=== PATIENT | male | born 1965 | race Caucasian/White ===

== ENCOUNTER 2022-03-28 14:18 | Inpatient (IN) | payer OTHER ==
[2022-03-28 16:25] VITALS: BMI 20.7
[2022-03-28] MEDS ORDERED: cloNIDine HCL 0.1 MG TABLET PO PRN (16:37)
[2022-03-28] MEDS ORDERED: LOPERAMIDE HCL 2 MG CAPSULE PO PRN (16:37)
[2022-03-28] MEDS ORDERED: BISMUTH SUBSALICYLATE 524 MG/30 ML PO PRN (16:37)
[2022-03-28] MEDS ORDERED: MAGNESIUM CITRATE 300 ML BOTTLE PO PRN (16:37)
[2022-03-28] MEDS ORDERED: NALOXONE HCL (KLOXXADO) 8 MG SPRAY NS PRN (16:37)
[2022-03-28] MEDS ORDERED: ACETAMINOPHEN 325 MG TABLET (FP) PO PRN ×2 (16:37)
[2022-03-28] MEDS ORDERED: methaDONE HCL 10 MG TABLET (FOR DETOX USE ONLY) PO ONE (16:37)
[2022-03-28] MEDS ORDERED: NICOTINE 10 MG CARTRIDGE (INHALER) IH PRN (16:37)
[2022-03-28] MEDS ORDERED: BENZOCAINE/MENTHOL (CHLORASEPTIC ) LOZENGE MM PRN (16:37)
[2022-03-28] MEDS ORDERED: METHOCARBAMOL 500 MG TABLET PO PRN (16:37)
[2022-03-28] MEDS ORDERED: DICYCLOMINE HCL 10 MG CAPSULE PO PRN (16:37)
[2022-03-28] MEDS ORDERED: MAGNESIUM HYDROX 2400MG/30ML ORAL SUSPENSION 30 ML CUP PO PRN (16:37)
[2022-03-28] MEDS ORDERED: IBUPROFEN 400 MG TABLET (FP) PO PRN (16:37)
[2022-03-28] MEDS: THIAMINE HCL 100 MG TABLET (FP) PO SCH (22:10)
[2022-03-28] MEDS: GABAPENTIN 300 MG CAPSULE PO SCH (22:10)
[2022-03-28] MEDS: MELATONIN 5 MG TABLETS PO SCH (22:10)
[2022-03-28] MEDS: METHYL SALICYLATE/MENTHOL OINT 30 GM TUBE TP SCH (22:11)
[2022-03-29] MEDS: GABAPENTIN 300 MG CAPSULE PO SCH ×3 (06:33→21:04)
[2022-03-29] MEDS ORDERED: methaDONE HCL 10 MG TABLET PO ONE (09:33)
[2022-03-29] MEDS ORDERED: methaDONE HCL 10 MG TABLET ONE (10:03)
[2022-03-29] MEDS ORDERED: methaDONE HCL 40 MG DISPERSABLE TABLET ONE (10:03)
[2022-03-29] MEDS: NICOTINE 7 MG/24 HOURS TOPICAL PATCH TD SCH (10:11)
[2022-03-29] MEDS: METHYL SALICYLATE/MENTHOL OINT 30 GM TUBE TP SCH ×2 (10:11→21:04)
[2022-03-29] MEDS: PRENATAL VITAMINS W/ FOLIC ACID TABLET (FP) PO SCH (10:11)
[2022-03-29 11:48] LABS: HEMATOCRIT 38.4 % (35.4-49); HEMOGLOBIN 12.7 GM/dL (11.7-16.9); MCH 30.1 pg (25.7-33.7); MCHC 33.1 g/dl (32.0-35.9); MEAN CELL VOLUME 91.1 fl (80-96); PLATELET COUNT 213 10^3/uL (134-434); RBC 4.21 M/mm3 (4.00-5.60); RDW 13.8 % (11.9-15.9); WHITE BLOOD COUNT 5.3 K/mm3 (4.0-10.0)
[2022-03-29 11:54] LABS: ALBUMIN 3.9 g/dl (3.4-5.0); BLOOD UREA NITROGEN 18.1 mg/dL (7-18); CALCIUM 9.9 mg/dL (8.5-10.1)
[2022-03-29 11:58] LABS: CREATININE 0.8 mg/dL (0.55-1.3)
[2022-03-29 11:59] LABS: BILIRUBIN,TOTAL 0.3 mg/dL (0.2-1)
[2022-03-29 12:00] LABS: TOT PROT 8.6 g/dl (6.4-8.2)
[2022-03-29] MEDS ORDERED: PNEUMOC 20-VAL CONJ-DIP CRM/PF 0.5 ML SYRINGE IM ONE (12:00)
[2022-03-29] MEDS: THIAMINE HCL 100 MG TABLET (FP) PO SCH (21:03)
[2022-03-29] MEDS: MELATONIN 5 MG TABLETS PO SCH (21:03)
[2022-03-30] MEDS ORDERED: methaDONE HCL 10 MG TABLET PO SCH (06:00)
[2022-03-30] MEDS ORDERED: methaDONE HCL 10 MG TABLET ONE (06:17)
[2022-03-30] MEDS ORDERED: methaDONE HCL 40 MG DISPERSABLE TABLET ONE (06:17)
[2022-03-30] MEDS: GABAPENTIN 300 MG CAPSULE PO SCH ×3 (06:19→21:13)
[2022-03-30] MEDS: PRENATAL VITAMINS W/ FOLIC ACID TABLET (FP) PO SCH (09:47)
[2022-03-30] MEDS: METHYL SALICYLATE/MENTHOL OINT 30 GM TUBE TP SCH ×2 (09:48→21:13)
[2022-03-30] MEDS: NICOTINE 7 MG/24 HOURS TOPICAL PATCH TD SCH (09:49)
[2022-03-30] MEDS ORDERED: methaDONE HCL 10 MG TABLET (FOR DETOX USE ONLY) PO ONE (10:00)
[2022-03-30] MEDS: THIAMINE HCL 100 MG TABLET (FP) PO SCH (21:12)
[2022-03-30] MEDS: MELATONIN 5 MG TABLETS PO SCH (21:12)
[2022-03-31] MEDS ORDERED: methaDONE HCL 10 MG TABLET ONE (04:06)
[2022-03-31] MEDS ORDERED: methaDONE HCL 40 MG DISPERSABLE TABLET ONE (04:06)
[2022-03-31] MEDS: GABAPENTIN 300 MG CAPSULE PO SCH ×3 (06:31→21:15)
[2022-03-31] MEDS: PRENATAL VITAMINS W/ FOLIC ACID TABLET (FP) PO SCH (09:51)
[2022-03-31] MEDS: NICOTINE 7 MG/24 HOURS TOPICAL PATCH TD SCH (09:51)
[2022-03-31] MEDS: METHYL SALICYLATE/MENTHOL OINT 30 GM TUBE TP SCH ×2 (09:51→22:09)
[2022-03-31] MEDS: IBUPROFEN 600 MG TABLET (FP) PO PRN (11:58)
[2022-03-31] MEDS: MELATONIN 5 MG TABLETS PO SCH (21:15)
[2022-03-31] MEDS: THIAMINE HCL 100 MG TABLET (FP) PO SCH (21:15)
[2022-04-01] MEDS ORDERED: methaDONE HCL 10 MG TABLET ONE (03:09)
[2022-04-01] MEDS ORDERED: methaDONE HCL 40 MG DISPERSABLE TABLET ONE (03:09)
[2022-04-01] MEDS: GABAPENTIN 300 MG CAPSULE PO SCH ×3 (05:56→22:28)
[2022-04-01] MEDS: PRENATAL VITAMINS W/ FOLIC ACID TABLET (FP) PO SCH (09:36)
[2022-04-01] MEDS: METHYL SALICYLATE/MENTHOL OINT 30 GM TUBE TP SCH ×2 (09:37→22:29)
[2022-04-01] MEDS: NICOTINE 7 MG/24 HOURS TOPICAL PATCH TD SCH (09:37)
[2022-04-01] MEDS ORDERED: methaDONE HCL 10 MG TABLET (FOR DETOX USE ONLY) PO ONE (10:00)
[2022-04-01] MEDS: IBUPROFEN 600 MG TABLET (FP) PO PRN (13:38)
[2022-04-01] MEDS: THIAMINE HCL 100 MG TABLET (FP) PO SCH (22:28)
[2022-04-01] MEDS: MELATONIN 5 MG TABLETS PO SCH (22:28)
[2022-04-02] MEDS ORDERED: methaDONE HCL 10 MG TABLET ONE (03:44)
[2022-04-02] MEDS ORDERED: methaDONE HCL 40 MG DISPERSABLE TABLET ONE (03:44)
[2022-04-02] MEDS: GABAPENTIN 300 MG CAPSULE PO SCH ×3 (06:07→21:10)
[2022-04-02] MEDS: METHYL SALICYLATE/MENTHOL OINT 30 GM TUBE TP SCH ×2 (09:51→21:55)
[2022-04-02] MEDS: PRENATAL VITAMINS W/ FOLIC ACID TABLET (FP) PO SCH (09:52)
[2022-04-02] MEDS: IBUPROFEN 600 MG TABLET (FP) PO PRN ×2 (09:53→16:48)
[2022-04-02] MEDS: NICOTINE 7 MG/24 HOURS TOPICAL PATCH TD SCH (09:57)
[2022-04-02] MEDS: THIAMINE HCL 100 MG TABLET (FP) PO SCH (21:10)
[2022-04-02] MEDS: MELATONIN 5 MG TABLETS PO SCH (21:10)
[2022-04-03] MEDS ORDERED: methaDONE HCL 10 MG TABLET ONE (03:24)
[2022-04-03] MEDS ORDERED: methaDONE HCL 40 MG DISPERSABLE TABLET ONE (03:24)
[2022-04-03] MEDS: GABAPENTIN 300 MG CAPSULE PO SCH ×3 (06:17→21:12)
[2022-04-03] MEDS: IBUPROFEN 600 MG TABLET (FP) PO PRN ×3 (06:18→21:12)
[2022-04-03] MEDS: PRENATAL VITAMINS W/ FOLIC ACID TABLET (FP) PO SCH (09:46)
[2022-04-03] MEDS: NICOTINE 7 MG/24 HOURS TOPICAL PATCH TD SCH (09:46)
[2022-04-03] MEDS: METHYL SALICYLATE/MENTHOL OINT 30 GM TUBE TP SCH ×2 (09:47→21:55)
[2022-04-03] MEDS: THIAMINE HCL 100 MG TABLET (FP) PO SCH (21:12)
[2022-04-03] MEDS: MELATONIN 5 MG TABLETS PO SCH (21:12)
[2022-04-04] MEDS ORDERED: methaDONE HCL 10 MG TABLET ONE (03:08)
[2022-04-04] MEDS ORDERED: methaDONE HCL 40 MG DISPERSABLE TABLET ONE (03:09)
[2022-04-04] MEDS: GABAPENTIN 300 MG CAPSULE PO SCH ×3 (06:10→21:14)
[2022-04-04] MEDS: PRENATAL VITAMINS W/ FOLIC ACID TABLET (FP) PO SCH (09:41)
[2022-04-04] MEDS: METHYL SALICYLATE/MENTHOL OINT 30 GM TUBE TP SCH ×2 (09:41→21:14)
[2022-04-04] MEDS: NICOTINE 7 MG/24 HOURS TOPICAL PATCH TD SCH (09:41)
[2022-04-04] MEDS: THIAMINE HCL 100 MG TABLET (FP) PO SCH (21:14)
[2022-04-04] MEDS: MELATONIN 5 MG TABLETS PO SCH (21:14)
[2022-04-05] MEDS ORDERED: methaDONE HCL 10 MG TABLET ONE (03:10)
[2022-04-05] MEDS ORDERED: methaDONE HCL 40 MG DISPERSABLE TABLET ONE (03:10)
[2022-04-05] MEDS: GABAPENTIN 300 MG CAPSULE PO SCH ×3 (06:01→21:26)
[2022-04-05] MEDS: METHYL SALICYLATE/MENTHOL OINT 30 GM TUBE TP SCH ×2 (09:42→21:26)
[2022-04-05] MEDS: PRENATAL VITAMINS W/ FOLIC ACID TABLET (FP) PO SCH (09:42)
[2022-04-05] MEDS: NICOTINE 7 MG/24 HOURS TOPICAL PATCH TD SCH (09:42)
[2022-04-05] MEDS: THIAMINE HCL 100 MG TABLET (FP) PO SCH (21:26)
[2022-04-05] MEDS: MELATONIN 5 MG TABLETS PO SCH (21:26)
[2022-04-06] MEDS ORDERED: methaDONE HCL 10 MG TABLET ONE (05:53)
[2022-04-06] MEDS ORDERED: methaDONE HCL 40 MG DISPERSABLE TABLET ONE (05:53)
[2022-04-06] MEDS: GABAPENTIN 300 MG CAPSULE PO SCH ×3 (05:59→21:17)
[2022-04-06] MEDS: METHYL SALICYLATE/MENTHOL OINT 30 GM TUBE TP SCH ×2 (10:16→21:16)
[2022-04-06] MEDS: IBUPROFEN 600 MG TABLET (FP) PO PRN ×2 (10:17→21:17)
[2022-04-06] MEDS: PRENATAL VITAMINS W/ FOLIC ACID TABLET (FP) PO SCH (10:17)
[2022-04-06] MEDS: NICOTINE 7 MG/24 HOURS TOPICAL PATCH TD SCH (10:17)
[2022-04-06] MEDS: THIAMINE HCL 100 MG TABLET (FP) PO SCH (21:16)
[2022-04-06] MEDS: MELATONIN 5 MG TABLETS PO SCH (21:16)
[2022-04-07] MEDS ORDERED: methaDONE HCL 40 MG DISPERSABLE TABLET ONE (03:11)
[2022-04-07] MEDS ORDERED: methaDONE HCL 10 MG TABLET ONE (03:11)
[2022-04-07] MEDS: GABAPENTIN 300 MG CAPSULE PO SCH ×3 (06:03→21:05)
[2022-04-07] MEDS: PRENATAL VITAMINS W/ FOLIC ACID TABLET (FP) PO SCH (09:46)
[2022-04-07] MEDS: METHYL SALICYLATE/MENTHOL OINT 30 GM TUBE TP SCH ×2 (09:48→21:06)
[2022-04-07] MEDS: NICOTINE 7 MG/24 HOURS TOPICAL PATCH TD SCH (09:48)
[2022-04-07] MEDS: MAG HYDROX/AL HYDROX/SIMETH 30 ML UNIT-DOSE CUP PO PRN (15:22)
[2022-04-07] MEDS: THIAMINE HCL 100 MG TABLET (FP) PO SCH (21:05)
[2022-04-07] MEDS: MELATONIN 5 MG TABLETS PO SCH (21:05)
[2022-04-08] MEDS ORDERED: methaDONE HCL 40 MG DISPERSABLE TABLET ONE (03:56)
[2022-04-08] MEDS ORDERED: methaDONE HCL 10 MG TABLET ONE (03:56)
[2022-04-08] MEDS: GABAPENTIN 300 MG CAPSULE PO SCH ×3 (06:14→21:06)
[2022-04-08] MEDS: PRENATAL VITAMINS W/ FOLIC ACID TABLET (FP) PO SCH (09:41)
[2022-04-08] MEDS: METHYL SALICYLATE/MENTHOL OINT 30 GM TUBE TP SCH ×2 (09:41→21:06)
[2022-04-08] MEDS: NICOTINE 7 MG/24 HOURS TOPICAL PATCH TD SCH (09:41)
[2022-04-08] MEDS: IBUPROFEN 600 MG TABLET (FP) PO PRN (09:41)
[2022-04-08] MEDS: MAG HYDROX/AL HYDROX/SIMETH 30 ML UNIT-DOSE CUP PO PRN (16:00)
[2022-04-08] MEDS: MELATONIN 5 MG TABLETS PO SCH (21:06)
[2022-04-08] MEDS: THIAMINE HCL 100 MG TABLET (FP) PO SCH (21:06)
[2022-04-09] MEDS ORDERED: methaDONE HCL 10 MG TABLET ONE (03:53)
[2022-04-09] MEDS ORDERED: methaDONE HCL 40 MG DISPERSABLE TABLET ONE (03:53)
[2022-04-09] MEDS: GABAPENTIN 300 MG CAPSULE PO SCH ×3 (06:11→21:27)
[2022-04-09] MEDS: NICOTINE 7 MG/24 HOURS TOPICAL PATCH TD SCH (09:48)
[2022-04-09] MEDS: PRENATAL VITAMINS W/ FOLIC ACID TABLET (FP) PO SCH (09:48)
[2022-04-09] MEDS: METHYL SALICYLATE/MENTHOL OINT 30 GM TUBE TP SCH ×2 (09:48→21:26)
[2022-04-09] MEDS: IBUPROFEN 600 MG TABLET (FP) PO PRN (09:48)
[2022-04-09] MEDS: THIAMINE HCL 100 MG TABLET (FP) PO SCH (21:26)
[2022-04-09] MEDS: MELATONIN 5 MG TABLETS PO SCH (21:26)
[2022-04-10] MEDS ORDERED: methaDONE HCL 40 MG DISPERSABLE TABLET ONE (03:49)
[2022-04-10] MEDS ORDERED: methaDONE HCL 10 MG TABLET ONE (03:49)
[2022-04-10] MEDS: GABAPENTIN 300 MG CAPSULE PO SCH ×3 (06:05→21:14)
[2022-04-10] MEDS: METHYL SALICYLATE/MENTHOL OINT 30 GM TUBE TP SCH ×2 (09:49→21:14)
[2022-04-10] MEDS: PRENATAL VITAMINS W/ FOLIC ACID TABLET (FP) PO SCH (09:49)
[2022-04-10] MEDS: NICOTINE 7 MG/24 HOURS TOPICAL PATCH TD SCH (09:49)
[2022-04-10] MEDS: MELATONIN 5 MG TABLETS PO SCH (21:14)
[2022-04-10] MEDS: THIAMINE HCL 100 MG TABLET (FP) PO SCH (21:14)
[2022-04-11] MEDS ORDERED: methaDONE HCL 10 MG TABLET ONE (03:16)
[2022-04-11] MEDS ORDERED: methaDONE HCL 40 MG DISPERSABLE TABLET ONE (03:16)
[2022-04-11] MEDS: GABAPENTIN 300 MG CAPSULE PO SCH (05:59)
[2022-04-11 07:08] VITALS: BP 129/87; PULSE 83; TEMP 98.4
== END 2022-04-11 08:35 | disposition home or self-care (01) | DRG 772 ==
LOC: YASAS 14:18 → Y3N 17:50 → Y3E 21:06
PROVIDERS: ADMIT Allergy & Immunology; ATTEND Psychiatry & Neurology Pain Medicine
PROC: HZ42ZZZ Group Counseling for Substance Abuse Treatment, Cognitive-Behavioral (ICD-10-PCS; principal; 2022-03-28)
DX: F11.20 Opioid dependence, uncomplicated (principal); F14.20 Cocaine dependence, uncomplicated; F10.10 Alcohol abuse, uncomplicated; F13.10 Sedative, hypnotic or anxiolytic abuse, uncomplicated; F17.210 Nicotine dependence, cigarettes, uncomplicated; M41.9 Scoliosis, unspecified; M15.9 Polyosteoarthritis, unspecified; Z96.653 Presence of artificial knee joint, bilateral
CPT/HCPCS: 36415; 71046-TC-FY; 80053; 82962; 85027; 86780; 87811; 93005; 93010; C9803-CS; U0003; U0005